=== PATIENT | female | born 1940 | race Caucasian/White ===

== ENCOUNTER → 2023-05-15 08:48 | Outpatient (REF) | payer MEDICARE, OTHER, SELFPAY ==
[2023-05-15 12:46] LABS: ALT (SGPT) 17 U/L (0-35); AST (SGOT) 19 U/L (14-36); Albumin 4.4 g/dl (3.5-5.0); Alkaline Phosphatase 87 U/L (38-126); Glucose 118 mg/dl (70-99); HDL Cholesterol 75 mg/dl; LDL Cholesterol, Calculated 128 mg/dl; Total Bilirubin 0.7 mg/dl (0.2-1.3); Total Cholesterol 237 mg/dl (50-199); Triglyceride 172 mg/dl (10-149); Very Low Density Lipoprotein 34 mg/dl (0-30)
== END ==
LOC: HWLAB 08:48
PROVIDERS: ATTENDING PHYSICIAN Internal Medicine
DX: E78.5 Hyperlipidemia, unspecified (principal); R73.01 Impaired fasting glucose; E66.09 Other obesity due to excess calories; R73.9 Hyperglycemia, unspecified
CPT/HCPCS: 36415; 80061; 80076; 82947; 83036

== ENCOUNTER → 2023-09-15 09:08 | Outpatient (REF) | payer MEDICARE, OTHER, SELFPAY ==
[2023-09-15 11:47] LABS: ALT (SGPT) 17 U/L (0-35); AST (SGOT) 21 U/L (14-36); Albumin 4.5 g/dl (3.5-5.0); Alkaline Phosphatase 82 U/L (38-126); Direct Bilirubin 0.2 mg/dl (0.0-0.4); Glucose 107 mg/dl (70-99); HDL Cholesterol 77 mg/dl; LDL Cholesterol, Calculated 135 mg/dl; Total Bilirubin 0.7 mg/dl (0.2-1.3); Total Cholesterol 250 mg/dl (50-199); Triglyceride 192 mg/dl (10-149); Very Low Density Lipoprotein 38 mg/dl (0-30)
== END ==
LOC: HWLAB 09:08
PROVIDERS: ATTENDING PHYSICIAN Internal Medicine
DX: R73.03 Prediabetes (principal); E78.5 Hyperlipidemia, unspecified
CPT/HCPCS: 36415; 80061; 80076; 82947; 83036

== ENCOUNTER 2023-11-29 09:33 | Emergency (ER) | payer MEDICARE, OTHER, SELFPAY ==
[2023-11-29] VITALS (7 sets, daily range): BP systolic 162–218; BP diastolic 71–105; BMI 30.7
--- NOTE | 2023-11-29 10:10 | EDRN ---
Pt states pqin started on R lower back last Sat and then on Friday called PCP and was given a steroid prescription and methocarbam TID 500 mg. Pt has also been taking aleve 1 every 12 hours. Pt was advised use to area.Friday started to radiate down
R upper leg to knee and now on upper lateral R leg and R buttocks. Pain starts to decrease and then increases again. This am unable to get up out of bed. pain is 8/10 and at its worse 10/10.
--- NOTE | 2023-11-29 10:55 | EDRN ---
Jo RASCON in room w/ pt.
--- NOTE | 2023-11-29 11:08 | ED.GENMED ---
History of Present Illness
General
Chief Complaint: Musculo-Skeletal Complaint
Source: patient
Exam Limitations: none
Time Seen by Provider: 11/29/23 10:22
Nursing documentation reviewed up to this point in time: agreed with
History of Present Illness
History of Present Illness:
pt is a 83 yo F
h/o HTN
h/o lower back pain/sciatica
says abouta week ago she was vaccuuming and felt something pull in her right lower back. This into her right buttocks initially. The following day she felt pain rating down the back of her leg. She never had any numbness or tingling. Patient
says she could not really move much and changing positions was pretty uncomfortable. She called her family doctor on the following day who ordered her steroids which she started at 60 mg once a day to 50 mg, then 40 mg, then 30 mg, then 20 mg, then
10 mg of prednisone. She completed this. She also was called in a muscle relaxant
She completed this and is still a lot of pain and now having more right lateral hip pain into her right lateral thigh. Again there is no swelling, skin changes, weakness, numbness, incontinence. She is able to walk. She has pain with changing
positions. She did not take her hydrochlorothiazide this morning because she did not have to get up and urinate. Oftentimes her blood pressure is elevated when she is in pain. She is not having any chest pain, shortness of breath, headache,
vision changes
Past History
Past History
ED Past Medical History: Cancer (breast, s/p XRT), HTN, Psychiatric (anxiety) and Other (lymphedema R arm)
ED Past Surgical History: Other (mastectomy )
Social History
Tobacco: Non-smoker
Drug: None
Personal:
Living: with family
Employment: Employed
Review of Systems
Review of Systems
Allergies reviewed?: Yes
All Other Systems: Not applicable
Phy Exam
Physical Exam
Physical Exam:
GENERAL: Alert , in no apparent distress, comfortable at rest
HEAD: NCAT
CARDIAC: Regular rate and rhythm, no edema
LUNGS: Clear breath sounds bilaterally, no acute respiratory distress, no wheezes/rales/rhonchi
ABDOMEN: Soft, without focal tenderness, no r/g, no cvat, normal bowel sounds, nondistended
NEUROLOGICAL: Alert and oriented, no focal neuro deficits, CN intact, 5/5 strength, sensation intact, ambulation limp right leg
SKIN: Warm and dry,
MUSCULOSKELETAL: No edema, well perfused. Normal inspection of the right hip, right leg
Patient has mild tenderness to palpation of the lateralhip on the right
He has no pain with flexion of the left hip, external rotation
Back: No midline tenderness, mild R lumbar tenderness, R PSIS tenderness, R si joint tenderness
flexion with pain
PSYCH: Normal and appropriate interaction.
Course
Orders/Labs/Results
Orders:
Orders
11/29/23 11:05
Acetaminophen [Tylenol] 325 mg PO NOW STA
Hydrocodone 5/APAP 325 [[place] 5/325] 1 tablet PO NOW STA
Hip, Right 2-3 Views [CR Hip - RT w/wo Pel 2-3 Vw*] Urgent
Comment:
Reason For Exam: RIGHT HIP PIAN WITH WEIGHT BEARING
Include a pelvis x-ray?: Yes
Lumbar Spine Complete, 4 View [CR Lumbar Spine Comp Min 4 Vw*] Urgent
Comment:
Reason For Exam: LOWER BACK PAIN WITH CHANGING POSITION
11/29/23 13:05
HYDROmorphone [Dilaudid] 0.5 mg IV NOW STA
11/29/23 13:07
Hydrochlorothiazide [Oretic] 25 mg PO NOW STA
11/29/23 14:23
Complete Blood Count/With Diff Urgent
Comprehensive Metabolic Panel Urgent
11/29/23 15:02
Ketorolac [Toradol] 15 mg IV NOW STA
Abnormal Lab Results
11/29/23
14:23
WBC 10.9 H 10^3/uL
(4.8-10.8)
Abs Immat Gran (auto) 0.1 H 10^3/uL
(0-0.05)
Absolute Monos (auto) 0.9 H 10^3/uL
(0.1-0.6)
Immature Gran % 0.6 H %
(0-0.5)
Chloride 96 L mmol/L
(98-107)
Carbon Dioxide 32 H mmol/L
(22-30)
BUN 33 H mg/dl
(7-17)
11/29/23 14:23
11/29/23 14:23
Vital Signs
Initial and Last Documented VS:
Initial Vital Signs
Temp Pulse Resp BP Pulse Ox
98.3 F 65 16 206/105 96
11/29/23 09:42 11/29/23 09:42 11/29/23 09:42 11/29/23 09:42 11/29/23 09:42
Last Documented Vital Signs
Temp Pulse Resp BP Pulse Ox
98.3 F 65 16 180/77 92
11/29/23 09:42 11/29/23 15:00 11/29/23 15:00 11/29/23 15:00 11/29/23 15:00
MDM/Problems Addressed
Differential Diagnosis Includes:
sciatica, lumbar radiculopathy, hip arthritis, bursitis
also with htn
MDM/Problems Addressed:
83 y/o F
h/o htn
sciatia symptoms x 1 week
no weakness/numbness/incontience
pain provoked with movement/hip and back; neg straight leg rasie, normal pulse
didn't resolve with steroids and muscle relaxants
asking fo rhydrocodone which has helped inthe past
given a dose but still in a lot of pain
elevated bp liekly relctive and patient has not taken her HCTZ. She was given HCTZ and IV dose of pain medication I did screening blood work which shows stable elevated BUN in the 30s. She feels much better after pain medication. I discussed the
case with ED attending. DC home for outpatient follow-up with her family doctor or orthopedist/spine
*Critical Care Note
Total Time (30-74mins, 75-104mins- exclusive of procedures): Not Applicable
ED Attending Note
-
Portions of this chart may have been created with voice recognition software.� Occasional wrong word or��sound alike� substitutions may have occurred due to the inherent limitations of voice recognition software.
Discharge Plan
Departure
Patient Disposition: Home (Routine Discharge)
Date of Disposition: 11/29/23
Time of Disposition: 16:21
Patient with high blood pressure during this ER visit?: Yes
Condition: Fair
Covid-19: Not Applicable
Discharge Problem:
Sciatica
Instructions: Sciatica (DC), BLOOD PRESSURE
Prescriptions:
New
methylprednisolone [Methylpred DP] 4 mg tablets,dose pack
See Rx Instructions .ROUTE .COMPLEX Qty: 21 0RF
Rx Instructions:
for 6 days
hydrocodone-acetaminophen 5-325 mg tablet
1 tab PO Q8H PRN (Reason: Pain) Qty: 11 0RF
No Action
ibuprofen [Advil] 200 MG tablet
400 tab PO BIDPRN PRN (Reason: mild pain)
acebutolol 200 MG capsule
200 mg PO BID
Patient Comments:
pt unsure of dose
clorazepate dipotassium 3.75 MG tablet
3.75 mg PO TIDPRN PRN (Reason: anxiety)
Patient Comments:
States has been a few weeks since last dose
biotin 10 MG tablet
10 mg PO DAILY
hydrochlorothiazide 25 MG tablet
25 mg PO DAILY
amlodipine 2.5 MG tablet
2.5 mg PO BID Qty: 60 5RF
doxycycline hyclate 100 MG capsule
100 mg PO Q12 Qty: 20 0RF
albuterol sulfate 1 PUFF HFA aerosol inhaler
2 puff inhalation R Q4HPRN PRN (Reason: cough, wheezing) Qty: 1 0RF
Referrals:
Nathanael Ontiveros MD [Family Provider] - Follow up in 2-3 days
Activity Restrictions/Additional Instructions:
YOURP AIN SEEMS TO BE RELATED TO SCIATICA
YOU DID HAVE ELEVATED BLOOD PRESSURE
BE SURE TO HAVE THIS RECHECKED THIS WEEK
IN THE MEANTIME YOU CAN TRY VICODIN 1 TAB 3 TIMES A DAY NEEDED FOR PAIN - THIS IS FOR SEVERE PAIN, IF THE PAIN IS MILD TRY REGULAR TYLENOL INSTEAD OF THE VICODIN
YOU CAN TRY A MEDROL DOSE SCOTT AGAIN FOR YOUR PAIN, THIS IS ANOTHER STEROID PACK AND FOLLOW INSTRUCTIONS PRESCRIBED
RETURN FOR: INABILTIY TO WALK, SEVERE PAIN, LEG WEAKNES/NUMBNESS, FEVER, URINARY SYMPTOMS OR ANY CONCERNS.
Interventions
Interventions:
*Risk Screen - Suicide Last Done: 11/29/23 10:15
*General Assessment Last Done: 11/29/23 10:15
*Neglect/Abuse Screening Last Done: 11/29/23 10:15
ED- Fall Risk Assessment Last Done: 11/29/23 10:15
*ED COVID-19 Vaccine History Last Done: 11/29/23 09:42
ED-Musculoskeletal Assessment Last Done: 11/29/23 10:15
Discharge Date and Time
Print Language: SPANISH
[2023-11-29] MEDS: TYLENOL 325 MG PO (11:16)
[2023-11-29] MEDS: NORCO 5/325 1 TABLET PO (11:17)
--- NOTE | 2023-11-29 13:00 | EDRN ---
Jo RASCON in room w/ pt at this time.
[2023-11-29] MEDS: ORETIC 25 MG PO (14:26)
[2023-11-29] MEDS: DILAUDID 0.5 MG IV (14:27)
[2023-11-29 14:29] LABS: % Basophils 0.4 % (0-2); % Eosinophils 2.3 % (0-6); % Immature Granulocytes 0.6 % (0-0.5); % Lymphocytes 31.6 % (20.5-51.1); % Monocytes 8.4 % (1.7-9.3); % Neutrophils 56.7 % (42.2-75.2); Absolute Eosinophils 0.3 10^3/uL (0-0.7); Absolute Immature Granulocytes 0.1 10^3/uL (0-0.05); Absolute Lymphocytes 3.4 10^3/uL (1.2-3.4); Absolute Monocytes 0.9 10^3/uL (0.1-0.6); Absolute Neutrophils 6.2 10^3/uL (1.4-6.5); Hemoglobin 13.2 g/dL (12.0-16.0); Mean Corp Hgb Conc. 34.7 g/dL (33.0-37.0); Mean Corpuscular Hgb 29.7 pg (27.0-31.0); Mean Corpuscular Volume 85.6 fL (81.0-99.0); Nucleated Red Blood Cells % 0 %; Platelet Count 273 10^3/uL (130-400); Red Blood Cell Count 4.44 10^6/uL (4.20-5.40); Red Cell Dist. Width 13.4 % (11.5-14.5); White Blood Cell Count 10.9 10^3/uL (4.8-10.8)
[2023-11-29 14:50] LABS: ALT (SGPT) 22 U/L (0-35); AST (SGOT) 18 U/L (14-36); Albumin 4.1 g/dl (3.5-5.0); Alkaline Phosphatase 77 U/L (38-126); Blood Urea Nitrogen 33 mg/dl (7-17); Calcium 9.6 mg/dl (8.4-10.2); Carbon Dioxide 32 mmol/L (22-30); Chloride 96 mmol/L (98-107); Estimated Creatinine Clearance 41 ml/min; Glucose 91 mg/dl (70-99); Potassium 3.6 mmol/L (3.5-5.1); Sodium 139 mmol/L (135-145); Total Bilirubin 0.5 mg/dl (0.2-1.3); Total Protein 6.6 g/dl (6.3-8.2)
--- NOTE | 2023-11-29 14:50 | EDRN ---
Jo RASCON in to see pt
--- NOTE | 2023-11-29 15:04 | EDRN ---
Dr. Doan in to see pt.
[2023-11-29] MEDS: TORADOL 15 MG IV (15:21)
--- NOTE | 2023-11-29 16:36 | EDRN ---
Pt was able to sit and stand and walk w/ Fannie BECKETT PCT.
== END 2023-11-29 16:49 | disposition home or self-care (01) ==
LOC: EMR 09:33
PROVIDERS: EMERGENCY PHYSICIAN Emergency Medicine; FAMILY PHYSICIAN Internal Medicine
DX: M54.40 Lumbago with sciatica, unspecified side (principal); I10 Essential (primary) hypertension
CPT/HCPCS: 99284; 96374; 96375; 72110; 73502; 80053; 85025

== ENCOUNTER → 2023-12-22 07:14 | Outpatient (REF) | payer MEDICARE, OTHER, SELFPAY | LOC: MRI 3T 07:14 | PROVIDERS: ATTENDING PHYSICIAN Physician Assistant; FAMILY PHYSICIAN Internal Medicine | DX: M54.16 Radiculopathy, lumbar region (principal) | CPT/HCPCS: 72148 ==

== ENCOUNTER → 2024-02-04 09:42 | Outpatient (REF) | payer MEDICARE, OTHER, SELFPAY ==
[2024-02-04 15:07] LABS: ALT (SGPT) 19 U/L (0-35); AST (SGOT) 20 U/L (14-36); Albumin 4.2 g/dl (3.5-5.0); Alkaline Phosphatase 73 U/L (38-126); Direct Bilirubin 0.2 mg/dl (0.0-0.4); Glucose 122 mg/dl (70-99); HDL Cholesterol 64 mg/dl; LDL Cholesterol, Calculated 132 mg/dl; Total Bilirubin 0.8 mg/dl (0.2-1.3); Total Cholesterol 240 mg/dl (50-199); Total Protein 6.7 g/dl (6.3-8.2); Triglyceride 223 mg/dl (10-149); Very Low Density Lipoprotein 44 mg/dl (0-30)
== END ==
LOC: HWLAB 09:42
PROVIDERS: ATTENDING PHYSICIAN Internal Medicine
DX: R73.9 Hyperglycemia, unspecified (principal); I10 Essential (primary) hypertension; R73.01 Impaired fasting glucose
CPT/HCPCS: 36415; 80061; 80076; 82947; 83036

== ENCOUNTER → 2024-06-03 09:54 | Outpatient (REF) | payer MEDICARE, OTHER, SELFPAY ==
[2024-06-03 11:53] LABS: ALT (SGPT) 23 U/L (0-35); AST (SGOT) 23 U/L (14-36); Albumin 4.3 g/dl (3.5-5.0); Alkaline Phosphatase 91 U/L (38-126); Direct Bilirubin 0.3 mg/dl (0.0-0.4); Glucose 133 mg/dl (70-99); HDL Cholesterol 62 mg/dl; LDL Cholesterol, Calculated 125 mg/dl; Total Bilirubin 0.9 mg/dl (0.2-1.3); Total Cholesterol 227 mg/dl (50-199); Total Protein 6.9 g/dl (6.3-8.2); Triglyceride 201 mg/dl (10-149); Very Low Density Lipoprotein 40 mg/dl (0-30)
[2024-06-03 12:01] LABS: Glycohemoglobin (HgbA1c) 6.1 % (4.0-5.6)
== END ==
LOC: HWLAB 09:54
PROVIDERS: ATTENDING PHYSICIAN Internal Medicine
DX: Z00.01 Encounter for general adult medical examination with abnormal findings (principal); R73.01 Impaired fasting glucose; I10 Essential (primary) hypertension
CPT/HCPCS: 36415; 80061; 80076; 82947; 83036

== ENCOUNTER → 2024-06-24 07:23 | Outpatient (REF) | payer MEDICARE, OTHER, SELFPAY | LOC: HWWDC 07:23 | PROVIDERS: ATTENDING PHYSICIAN Internal Medicine | DX: Z12.31 Encounter for screening mammogram for malignant neoplasm of breast (principal) | CPT/HCPCS: 77063; 77067 ==

== ENCOUNTER → 2024-08-16 07:47 | Outpatient (REF) | payer MEDICARE, OTHER, SELFPAY | LOC: RAD 07:47 | PROVIDERS: ATTENDING PHYSICIAN Internal Medicine | DX: R09.89 Other specified symptoms and signs involving the circulatory and respiratory systems (principal) | CPT/HCPCS: 93922; 93925 ==

== ENCOUNTER 2024-09-28 10:59 | Day surgery (SDC) | payer MEDICARE, OTHER, SELFPAY ==
[2024-09-22 09:23] VITALS: BMI 33.0
[2024-09-28] VITALS (13 sets, daily range): BP systolic 133–155; BP diastolic 54–79; BMI 30.2
[2024-09-28] MEDS: NSS 232 ML IV (11:44)
--- NOTE | 2024-09-28 13:39 | W.SUR.PREOP ---
Pre-Operative Surgical Note
-
I have examined this patient prior to the performance of the scheduled procedure.
The patient's condition is unchanged from the time of the current History and
Physical and the patient is able to undergo the scheduled procedure.
--- NOTE | 2024-09-28 15:54 | W.IMMPOSTOP ---
Surgical Immed Post Op Note
-
Primary Surgeon: Sandra
Assisting Surgeon: Saira
Pre-op Diagnosis: Chronic limb-threatening ischemia
Post-op Diagnosis: Chronic limb-threatening ischemia
Procedure Performed: Balloon angioplasty of L SFA, TP trunk and peroneal arteries
Anesthesia Type: Sedation/Local
Specimen / Cultures: None
Estimated Blood Loss: 5 cc
Complications: None
Operative Findings: Stenosis of L proximal SFA, TP trunk and proximal peroneal arteries with balloon angioplasty of all segments
[2024-09-28] MEDS: PLAVIX 300 MG PO (16:32)
[2024-09-28] MEDS: ASPIRIN 325 MG PO (16:32)
[2024-09-28] MEDS: NSS 1000 IV (17:12)
--- NOTE | 2024-09-28 18:40 | OR.RPT ---
Operative Report
Operative Report
Date of Operation: 09/28/2024
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
Procedure:
1. Drug-coated balloon angioplasty of left superficial femoral artery stenosis (6 mm x 40 mm Lutonix)
2. Balloon angioplasty of proximal left peroneal artery stenosis (3 mm x 80 mm angioplasty balloon)
3. Balloon angioplasty of left tibioperoneal trunk (3 mm x 80 mm angioplasty balloon)
4. Bioabsorbable drug-eluting scaffold stent placement to proximal left peroneal artery (3 mm x 28 mm Lott Esprit)
5. Diagnostic aortobiiliac arteriogram
6. Diagnostic left lower extremity arteriogram
7. Ultrasound-guided percutaneous access to the right common femoral artery
8. Pro-glide closure right common femoral artery access
Surgeon: Britton Flores III, MD
Combine Inspector: Leon Chávez MD PGY2
Anesthesia: Sedation with local
Fluoroscopy:
20.5 min
145 mGy
36.57 gy.cm2
Complications: None
Estimated Blood Loss: Less than 10 cc
History and Indications for Procedure: 84-year-old female with poorly healing left lateral foot wound
Procedure in Detail: Nayla Hernandez was correctly identified and placed supine on the operating table. After adequate induction of anesthesia the bilateral groins were prepped and draped in the usual sterile fashion. A timeout was performed with the
nursing and anesthesia staff confirming the patient's identity as well as the nature and laterality of the procedure.
The right common femoral artery was identified under ultrasound guidance. The artery was patent. The superior and inferior aspects of the femoral head were identified with radiographic guidance and marked at the skin level. The proposed puncture
site was infiltrated with local anesthesia. Under ultrasound guidance we accessed the right common femoral artery with a micropuncture needle and upsized to a 5 Fr sheath over a [place] [employer] wire. The wire and a ShepherLycera hook flush catheter were
advanced into the distal abdominal aorta and a diagnostic aorto-biiliac arteriogram was performed:
AORTO-ILIAC ARTERIOGRAM:
Aorta: Patent with no significant stenosis identified
Right common iliac artery: Patent with no significant stenosis identified
Right external iliac artery: Patent with no significant stenosis identified
Left common iliac artery: Patent with no significant stenosis identified
Left external iliac artery: Patent with no significant stenosis identified
Under roadmap guidance using a Glidewire and the SpeechTrans hook catheter we selected the left common iliac artery and then the external iliac artery. A catheter was tracked up and over the aortic bifurcation and placed in the distal external iliac
artery. A diagnostic left lower extremity arteriogram was then performed which demonstrated the following:
LEFT LOWER EXTREMITY:
Common femoral artery: Patent with no significant stenosis identified
Profunda femoral artery: Patent with no significant stenosis identified
Superficial femoral artery: Patent. Focal high-grade stenosis in the proximal to mid segment.
Popliteal artery: Mild stenosis above the knee. Otherwise patent with no significant stenosis identified
Anterior tibial artery: Patent stump but occluded shortly thereafter. No distal reconstitution identified. No reconstitution identified of the dorsalis pedis artery.
Tibioperoneal trunk: Moderate stenosis
Peroneal artery: Focal high-grade stenosis proximally. Patent to the ankle distally. Branches at the ankle appear to supply the lateral foot in the region of the wound
Posterior tibial artery: Patent. Dominant tibial artery runoff. No stenosis identified
ENDOVASCULAR INTERVENTION: Systemic heparin was administered. Exchanged out for a 6 Fr 45 cm sheath over a Storq wire. Selected the superficial femoral artery under roadmap guidance. The SFA stenosis was crossed easily. Under roadmap guidance I
positioned a 6 mm x 40 mm Lutonix drug-coated angioplasty balloon across the stenosis. The balloon was inflated to nominal pressure and held in place for 3 minutes. The balloon was then deflated and removed over the wire. Subsequent arteriogram
demonstrated an excellent technical result with a widely patent superficial femoral artery with good flow and no residual stenosis, dissection or filling defects identified.
We then focused our attention on the tibioperoneal trunk and peroneal artery disease. Under roadmap guidance we selected the tibioperoneal trunk and peroneal artery with the [place] and Glidewire. The wire and catheter were advanced beyond the
stenosis in the proximal peroneal artery and arteriogram confirmed proper true lumen position. A 0.014 wire was placed. Under roadmap guidance I positioned a 3 mm x 80 mm angioplasty balloon across the proximal peroneal artery stenosis and
tibioperoneal trunk. The balloon was inflated to nominal pressure and held in place for 3-minute inflation. Subsequent arteriogram demonstrated a significantly improved result. No significant residual stenosis was identified in the tibioperoneal
trunk. A focal dissection flap was identified in the proximal peroneal artery. This was treated with a 3 mm x 28 mm Lott Esprit with an excellent result.
COMPLETION ARTERIOGRAM: Widely patent tibioperoneal trunk, posterior tibial artery and peroneal artery with no significant residual stenosis identified. The peroneal artery was patent to the ankle. Again demonstrated were branches at the ankle
from the peroneal artery to the lateral foot. The posterior tibial artery was the dominant tibial artery which crossed the ankle and supplied the foot. Again demonstrated was an occluded anterior tibial artery and dorsalis pedis artery with no
distal reconstitution identified
Satisfied with this result we concluded the procedure. The sheath tip was pulled back into the right external iliac artery. A Pro-glide closure device was used on the right common femoral artery access. Additional pressure was held over the access
site following Pro-glide closure. Complete hemostasis was achieved. A sterile dressing was applied.
The patient tolerated the procedure well and was taken to the recovery area in stable condition.
Attestation: I was present and responsible for the entire procedure.
Signed:
Britton Flores III, MD
Vascular Surgery
[facility]
== END 2024-09-28 19:10 | disposition home or self-care (01) ==
LOC: CATH 10:59
PROVIDERS: ATTENDING PHYSICIAN Surgery Vascular Surgery; FAMILY PHYSICIAN Internal Medicine
DX: I70.245 Atherosclerosis of native arteries of left leg with ulceration of other part of foot (principal); L97.529 Non-pressure chronic ulcer of other part of left foot with unspecified severity; I70.90 Unspecified atherosclerosis; I10 Essential (primary) hypertension; Z85.3 Personal history of malignant neoplasm of breast; Z79.899 Other long term (current) drug therapy
CPT/HCPCS: 37224; 37230; 37232; 75625; 75710; C1769; C1874; C2623

== ENCOUNTER → 2024-10-12 08:51 | Outpatient (REF) | payer MEDICARE, OTHER, SELFPAY ==
[2024-10-12 11:50] LABS: Glycohemoglobin (HgbA1c) 6.2 % (4.0-5.6)
[2024-10-12 11:55] LABS: ALT (SGPT) 16 U/L (0-35); AST (SGOT) 19 U/L (14-36); Albumin 4.3 g/dl (3.5-5.0); Alkaline Phosphatase 86 U/L (38-126); Glucose 136 mg/dl (70-99); HDL Cholesterol 64 mg/dl; LDL Cholesterol, Calculated 70 mg/dl; Total Protein 6.8 g/dl (6.3-8.2); Very Low Density Lipoprotein 27 mg/dl (0-30)
== END ==
LOC: HWLAB 08:51
PROVIDERS: ATTENDING PHYSICIAN Internal Medicine
DX: R73.03 Prediabetes (principal); R73.01 Impaired fasting glucose; E66.09 Other obesity due to excess calories; E78.5 Hyperlipidemia, unspecified; I10 Essential (primary) hypertension
CPT/HCPCS: 36415; 80061; 80076; 82947; 83036

== ENCOUNTER → 2024-10-20 14:42 | Outpatient (REF) | payer MEDICARE, OTHER, SELFPAY | LOC: RAD 14:42 | PROVIDERS: ATTENDING PHYSICIAN Surgery Vascular Surgery; FAMILY PHYSICIAN Internal Medicine | DX: I73.9 Peripheral vascular disease, unspecified (principal) | CPT/HCPCS: 93922; 93925 ==

== ENCOUNTER → 2025-02-11 08:26 | Outpatient (REF) | payer MEDICARE, OTHER, SELFPAY ==
[2025-02-11 09:03] LABS: Hematocrit 37.5 % (37.0-47.0); Hemoglobin 12.6 g/dL (12.0-16.0); Mean Corp Hgb Conc. 33.6 g/dL (33.0-37.0); Mean Corpuscular Volume 89.5 fL (81.0-99.0); Nucleated Red Blood Cells % 0 %; Platelet Count 264 10^3/uL (130-400); Red Cell Dist. Width 14.1 % (11.5-14.5)
[2025-02-11 09:31] LABS: Glycohemoglobin (HgbA1c) 6.1 % (4.0-5.9)
[2025-02-11 09:35] LABS: ALT (SGPT) 16 U/L (0-35); AST (SGOT) 17 U/L (14-36); Albumin 4.4 g/dl (3.5-5.0); Alkaline Phosphatase 86 U/L (38-126); Blood Urea Nitrogen 25 mg/dl (7-17); Calcium 9.8 mg/dl (8.4-10.2); Carbon Dioxide 28 mmol/L (22-30); Chloride 101 mmol/L (98-107); Glucose 119 mg/dl (70-99); HDL Cholesterol 70 mg/dl; LDL Cholesterol, Calculated 91 mg/dl; Potassium 3.7 mmol/L (3.5-5.1); Sodium 137 mmol/L (135-145); Total Protein 7.2 g/dl (6.3-8.2); Very Low Density Lipoprotein 23 mg/dl (0-30); eGFR 44.64
== END ==
LOC: REG 08:26
PROVIDERS: ATTENDING PHYSICIAN Internal Medicine
DX: R73.03 Prediabetes (principal); R73.01 Impaired fasting glucose; E66.09 Other obesity due to excess calories; Z00.01 Encounter for general adult medical examination with abnormal findings
CPT/HCPCS: 36415; 80053; 80061; 83036; 85025